=== PATIENT | female | born 1955 | race Caucasian/White ===

== ENCOUNTER 2016-12-07 16:52 | Emergency (ER) | payer BC ==
--- NOTE | 2016-12-07 17:15 | EDM.PDOC ---
ED HPI GENERAL MEDICAL PROBLEM - General Chief Complaint: ENT Problem Stated Complaint: PT HAS SINUS INFECTION Time Seen by Provider: 12/07/16 17:11 Source of Information: Reports: Patient History Limitations: Reports: No Limitations - History of Present Illness INITIAL COMMENTS - FREE TEXT/NARRATIVE: HISTORY AND PHYSICAL: []61-year-old female presenting with sinus pressure History of Present Illness: [] This awakens morning when her head is hurting bridge of her nose Review of Systems: As per history of present illness and below otherwise all systems reviewed and negative. Past medical history: As per history of present illness and as reviewed below otherwise noncontributory. Surgical history: As per history of present illness and as reviewed below otherwise noncontributory. Social history: No reported history of drug or alcohol abuse. Family history: As per history of present illness and as reviewed below otherwise noncontributory. Physical exam: Alert and oriented female able to speak in full sentences cooperative with examination speaking nasally HEENT: Atraumatic, normocehpalic, pupils reactive, negative for conjunctival pallor or scleral icterus, mucous membranes moist, throat clear, neck supple, nontender, trachea midline. Tender with palpation across the bridge of her nose poor light reflex Lungs: Clear to auscultation, breath sounds equal bilaterally, chest non tender. Heart: S1S2, regular, negative for clicks, rubs, or JVD. Abdomen: Soft, nondistended, nontender. Negative for masses or hepatossplenmegaly. Negative for costovertebral tenderness. Pelvis: Stable nontender. Genitourinary: Deferred. Rectal: Deferred Extremities: Atraumatic, negative for cords or calf pain. Neurovascular unremarkable. Neuro: Awake, alert, oriented. Cranial nerves II through XII unremarkable. Cerebellum unremarkable. Motor and sensory unremarkable throughout. Exam nonfocal. Diagnostics: [] Therapeutics: [] Impression: [Sinusitis] Plan: []Home antibiotics Definitive disposition and diagnosis as appropriate pending reevaluation and review of above. Onset: Today, Sudden Duration: Hour(s):, Getting Worse Location: Reports: Head, Face Quality: Reports: Ache - Related Data Allergies Allergy/AdvReac Type Severity Reaction Status Date / Time morphine Allergy Hives Verified 12/07/16 16:56 Home Meds: Home Meds Amoxicillin/Clavulanate K [Augmentin 875 MG/125 MG] 1 tab PO Q12HR #20 tablet [Rx] Escitalopram [Lexapro] 10 mg PO DAILY 12/07/16 [History] Past Medical History HEENT History: Reports: Impaired Vision Other HEENT History: wears reading glasses, has top denture and bottom partial Cardiovascular History: Reports: None Other Respiratory History: getting tested for sleep apnea next month Gastrointestinal History: Reports: Bowel Obstruction, GERD BRUSH HAND History: Reports: Other (See Below) Other OB/BYN History: hx of laparotomy for removal of ovary Musculoskeletal History: Reports: Fracture Psychiatric History: Reports: Depression Endocrine/Metabolic History: Reports: Obesity/BMI 30+ Hematologic History: Reports: Blood Transfusion(s) Immunologic History: Reports: None Oncologic (Cancer) History: Reports: None Dermatologic History: Reports: None - Past Surgical History Head Surgeries/Procedures: Reports: None HEENT Surgical History: Reports: None Cardiovascular Surgical History: Reports: None Respiratory Surgical History: Reports: None GI Surgical History: Reports: Appendectomy, Cholecystectomy Other GI Surgeries/Procedures: hx of Laparotomy for bowel obstruction x 3 Female Surgical History: Reports: None Endocrine Surgical History: Reports: None Neurological Surgical History: Reports: None Musculoskeletal Surgical History: Reports: ORIF Other Musculoskeletal Surgeries/Procedures:: right ankle Oncologic Surgical History: Reports: Lumpectomy Social & Family History - Tobacco Use Smoking Status *Q: Former Smoker Used Tobacco, but Quit: Yes - Recreational Drug Use Recreational Drug Use: No Drug Use in Last 12 Months: No ED ROS ENT - Review of Systems Review Of Systems: ROS reveals no pertinent complaints other than HPI. ED EXAM, ENT - Physical Exam Exam: See Below (see dictation) Departure - Departure Time of Disposition: 17:13 Disposition: Home, Self-Care 01 Condition: Good Clinical Impression: Sinusitis Qualifiers: Sinusitis location: ethmoidal Chronicity: acute Recurrence: not specified as recurrent Qualified Code(s): J01.20 - Acute ethmoidal sinusitis, unspecified - Discharge Information Prescriptions: Amoxicillin/Clavulanate K [Augmentin 875 MG/125 MG] 1 tab PO Q12HR #20 tablet Forms: ED Department Discharge
== END 2016-12-07 17:22 | disposition home or self-care (01) ==
LOC: MW.ED 16:52
CPT/HCPCS: 99282; 99283

== ENCOUNTER 2017-08-13 09:45 | Day surgery (SDC) | payer BC ==
[~2017-08-13 09:45] MED LIST: Acetaminophen/HYDROcodone 325-5 MG Tab PO PRN; Bupivacaine 0.25%/EPINEPHrine 1:200,000 10 ML SDV INJECT ONE; Bupivacaine 25%/EPINEPHrine/PF 30 ML ONE; Lactated Ringers 1,000 ML IV SCH; Lidocaine 2% 5 ML SDV ONE; Midazolam 1 MG/ML 2 ML SDV ONE; Propofol 200 MG/20 ML SDV ONE; ceFAZolin 2 GM in Premix Bag 1 BAG IV ONE; ceFAZolin/Dextrose,Iso-Osmotic 2 GM/50 ML Duplex Bag IV ONE; fentaNYL 100 MCG/2 ML SDV ONE
--- NOTE | 2017-08-13 10:41 | PCM.PREANE ---
Preanesthetic Assessment - Anesthesia/Transfusion/Family Hx Anesthesia History: Prior Anesthesia Without Reaction Other Type of Anesthesia Reaction Comment: hx of N&V in the past- not recently Family History of Anesthesia Reaction: No Transfusion History: No Prior Transfusion(s) Intubation History: Unknown - Review of Systems General: No Symptoms Pulmonary: No Symptoms Cardiovascular: No Symptoms Gastrointestinal: No Symptoms Neurological: No Symptoms Other: Reports: None - Physical Assessment Height: 1.6 m Weight: 125.192 kg ASA Class: 3 Mental Status: Alert & Oriented x3 Airway Class: Mallampati = 2 Dentition: Reports: Dentures (upper), Partial (lower) Thyro-Mental Finger Breadths: 3 Mouth Opening Finger Breadths: 2 ROM/Head Extension: Full Lungs: Clear to Auscultation, Normal Respiratory Effort Cardiovascular: Regular Rate, Regular Rhythm - Allergies Allergies/Adverse Reactions: Allergies Allergy/AdvReac Type Severity Reaction Status Date / Time morphine Allergy Hives Verified 08/10/17 12:48 - Blood Blood Available: No - Anesthesia Plan Pre-Op Medication Ordered: None - Acknowledgements Anesthesia Type Planned: MAC Pt an Appropriate Candidate for the Planned Anesthesia: Yes Alternatives and Risks of Anesthesia Discussed w Pt/Guardian: Yes Pt/Guardian Understands and Agrees with Anesthesia Plan: Yes PreAnesthesia Questionnaire HEENT History: Reports: Other (See Below) Other HEENT History: wears glasses, has upper denture and lower removable partial denture Cardiovascular History: Reports: None Other Respiratory History: getting tested for sleep apnea next month Gastrointestinal History: Reports: Bowel Obstruction, GERD Other Gastrointestinal History: SBO x3 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 (See Below) Other OB/BYN History: hx of laparotomy for removal of ovary Musculoskeletal History: Reports: Fracture Psychiatric History: Reports: Depression Endocrine/Metabolic History: Reports: Obesity/BMI 30+ (morbid obesity BMI 48.9) Hematologic History: Reports: B12 Deficiency Immunologic History: Reports: None Oncologic (Cancer) History: Reports: None Dermatologic History: Reports: None - Past Surgical History Head Surgeries/Procedures: Reports: None GI Surgical History: Reports: Appendectomy, Bariatric Procedure, Cholecystectomy Female Surgical History: Reports: Breast Biopsy, Oophorectomy Musculoskeletal Surgical History: Reports: ORIF Other Musculoskeletal Surgeries/Procedures:: hx of fx right ankle- has plate and screws - SUBSTANCE USE Smoking Status *Q: Former Smoker (quit 25 years ago) Tobacco Use Within Last Twelve Months: No Recreational Drug Use History: No - HOME MEDS Home Medications: Home Meds Escitalopram [Lexapro] 20 mg PO DAILY 12/07/16 [History] Cyanocobalamin (Vitamin B-12) [Vitamin B-12] 1,000 mcg IM ASDIRECTED 08/10/17 [ History] - CURRENT (IN HOUSE) MEDS Current Meds: Current Medications Hydrocodone Bitart/Acetaminophen (Salcha 325-5 Mg) 1 tab PO Q4H PRN PRN Reason: Pain Lactated Ringer's (Ringers, Lactated) 1,000 mls @ 125 mls/hr IV ASDIRECTED MAE Discontinued Medications Bupivacaine HCl/Epinephrine Bitart (Marcaine 0.25%/Epinephrine 1:200,000) 10 ml INJECT ONETIME ONE Stop: 08/13/17 08:01 Cefazolin Sodium/Dextrose (Ancef) Confirm Administered Dose 2 gm IV .STK-MED ONE Stop: 08/13/17 07:13 Fentanyl (Sublimaze) Confirm Administered Dose 100 mcg .ROUTE .STK-MED ONE Stop: 08/13/17 07:12 Cefazolin Sodium/Dextrose 2 gm (/ Premix) 50 mls @ 100 mls/hr IV ONETIME ONE Stop: 08/13/17 08:29 Bupivacaine HCl/Epinephrine Bitart (Sensorc Mpf 0.25%-Epi [id number]) Confirm Administered Dose 30 mls @ as directed .ROUTE .STK-MED ONE Stop: 08/13/17 07:28 Lidocaine (Xylocaine-Mpf 2%) Confirm Administered Dose 5 ml .ROUTE .STK-MED ONE Stop: 08/13/17 07:13 Midazolam HCl (Versed 1 Mg/Ml) Confirm Administered Dose 2 mg .ROUTE .STK-MED ONE Stop: 08/13/17 07:12 Propofol (Diprivan 20 Ml) Confirm Administered Dose 200 mg .ROUTE .STK-MED ONE Stop: 08/13/17 07:12
[2017-08-13] MEDS ORDERED: fentaNYL 100 MCG/2 ML SDV ONE (11:16)
[2017-08-13] MEDS ORDERED: Ketorolac 30 MG/ML SDV ONE (11:17)
[2017-08-13] MEDS ORDERED: Propofol 200 MG/20 ML SDV ONE (11:17)
--- NOTE | 2017-08-13 12:05 | PCM48HPAN ---
Post Anesthesia Note - EVALUATION WITHIN 48HRS OF ANESTHETIC Vital Signs in Normal Range: Yes Patient Participated in Evaluation: Yes Respiratory Function Stable: Yes Airway Patent: Yes Cardiovascular Function Stable: Yes Hydration Status Stable: Yes Pain Control Satisfactory: Yes Nausea and Vomiting Control Satisfactory: Yes Mental Status Recovered: Yes Resp Rate: 16 - COMMENTS/OBSERVATIONS Free Text/Narrative:: no anesthesia problems, patient skipped recovery room stage of postoperative care
--- NOTE | 2017-08-13 14:39 | PCM.OPNOTE ---
- General Post-Op/Procedure Note Date of Surgery/Procedure: 08/13/17 Operative Procedure(s): excision ganglions to right thumb and right ring finger Pre Op Diagnosis: ganglion cyst right thumb and right ring finger Post-Op Diagnosis: Same Anesthesia Technique: Local, MAC Primary Surgeon: Saadia Rivas Dip Dyer: Leonor Wagner Role of Dip Dyer: retraction, prepping, draping and closure assistance. Complications: None Condition: Good
[2017-08-13 15:01] VITALS: BP 144/58
--- NOTE | 2017-08-13 17:07 | OR ---
SURGEON: NAMRATA CODY MD DATE OF PROCEDURE: 08/13/2017 PREOPERATIVE DIAGNOSES: 1. Right thumb ganglion cyst. 2. Right ring finger ganglion cyst. POSTOPERATIVE DIAGNOSES: 1. Right thumb ganglion cyst. 2. Right ring finger ganglion cyst. PROCEDURES: 1. Excision of ganglion cyst of right thumb. 2. Excision of ganglion cyst, right ring finger. SYSTEMS ARCHITECTURE ANALYST: CORTES Sanchez. REASON FOR SYSTEMS ARCHITECTURE ANALYST: Retraction, prepping, draping, and closure assistance. ANESTHESIA: Local MAC. INDICATIONS: Ms. Taveras is a 61-year-old female with a ganglion cyst of the right thumb and the right ring finger. There are causing significant discomfort to her as well as abnormalities in nail growth on the ring finger. Risks and benefits of excision were discussed with her and she was in agreement to proceed. Risks were including, but not limited to, bleeding, infection, damage to underlying or overlying structures, possible need for future interventions, possible scarring. PROCEDURE IN DETAIL: After informed consent was obtained and placed on the chart. The patient was brought into the operating theater and laid in supine position. After adequate local MAC anesthesia was obtained, the area was prepped and draped and a time- out was completed to confirm side and site. The arm was exsanguinated and tourniquet was insufflated to 200 mmHg. Attention was then paid to excision of the ganglion of the right thumb with a longitudinal incision directly over radial aspect of the MCP joint where the ganglion was located. Dissection was carried down through the skin and subcutaneous tissues taking care to protect any cutaneous nerves. Once adequately exposed, the lesion was excised and was appreciated to communicate all the way down with the joint. Once adequately excised, the stalk and the communication was cauterized and closed using a 4-0 Monocryl stitch in a figure- of-eight fashion. Once adequately closed, the skin was then closed using 5-0 nylon stitch in a horizontal mattress fashion. Attention was then paid to the right ring finger and dissection was carried curvilinear around the DIP joint inside the ganglion cyst. Dissection was carried down directly onto the joint capsule taking care to spare the extensor tendon and collateral ligament. Once dissected down to the joint capsule here, the communication with the joint was located and a small amount of arthritic change was noted here. Small joint abnormalities were rongeured until smooth. Then the joint was copiously irrigated. Once adequately smooth, attention was then paid to closure of the capsule above this using a single 4-0 Monocryl stitch in a buried fashion. Once adequately closed, attention was then paid to hemostasis and closing the skin with a 5-0 nylon stitch in a horizontal mattress fashion. The patient tolerated this well. All counts and needles were correct at the end of the case. The wounds were dressed with Xeroform, fluffs, and a Kerlix gauze dressing and a 2-inch Lorne wrap and a Band-Aid for the finger. The patient tolerated this well. All counts and needles were correct at the end of the case. FOLLOWUP INSTRUCTIONS: The patient will see us in 10 to 14 days or sooner if any problems, questions, or concerns. She was given a prescription for pain control. FOUZIA BARR /[id number]
== END 2017-08-13 12:23 | disposition home or self-care (01) ==
LOC: MW.SDS 09:45
PROVIDERS: ATTEND Plastic Surgery
DX: M67.441 Ganglion, right hand (principal); M18.9 Osteoarthritis of first carpometacarpal joint, unspecified; F32.9 Major depressive disorder, single episode, unspecified; K21.9 Gastro-esophageal reflux disease without esophagitis; N60.29 Fibroadenosis of unspecified breast; E66.01 Morbid (severe) obesity due to excess calories; E53.8 Deficiency of other specified B group vitamins; Z88.5 Allergy status to narcotic agent; Z79.899 Other long term (current) drug therapy; Z87.891 Personal history of nicotine dependence; Z68.42 Body mass index [BMI] 45.0-49.9, adult
CPT/HCPCS: 26160; J0690; J1885; J2250; J3010; J7120; J2704

== ENCOUNTER 2017-10-11 22:13 | Emergency (ER) | payer BC ==
--- NOTE | 2017-10-11 23:25 | EDM.PDOC ---
ED HPI GENERAL MEDICAL PROBLEM - General Chief Complaint: ENT Problem Stated Complaint: COLD,SORE THROAT,EARACHE Time Seen by Provider: 10/11/17 23:22 Source of Information: Reports: Patient History Limitations: Reports: No Limitations - History of Present Illness INITIAL COMMENTS - FREE TEXT/NARRATIVE: HISTORY AND PHYSICAL: History of present illness: 61-year-old female presenting emergency department with chief complaint of nasal congestion and sore throat 2 days Patient states that 2 days ago she began to get some nasal congestion. She has had some associated sore throat which started approximately yesterday. She also is complaining of some right ear pain. She has had a productive cough with venous yellow sputum production. Denies any shortness of breath. She did feel a little bit warm with some mild chills but no overt fever. She denies any nausea , vomiting, abdominal pain, diarrhea, dysuria, or other signs of systemic infection. Currently denies any chest pain, palpitations, shortness of breath, syncopal episodes, focal neurologic deficits. Review of systems: As per history of present illness and below otherwise all systems reviewed and negative. Past medical history: As per history of present illness and as reviewed below otherwise noncontributory. Surgical history: As per history of present illness and as reviewed below otherwise noncontributory. Social history: No reported history of drug or alcohol abuse. Family history: As per history of present illness and as reviewed below otherwise noncontributory. Physical exam: HEENT: Bilateral tympanic membranes are bulging and no erythema. Right external canal is erythematous. Posterior pharynx is erythematous with mild exudate. Anterior cervical and submandibular lymph nodes are mildly enlarged and tender to palpation but mobile. Atraumatic, normocephalic, pupils reactive, negative for conjunctival pallor or scleral icterus, mucous membranes moist,, trachea midline. Lungs: Clear to auscultation, breath sounds equal bilaterally, chest nontender. Heart: S1S2, regular, negative for clicks, rubs, or JVD. Abdomen: Soft, nondistended, nontender. Negative for masses or hepatosplenomegaly. Negative for costovertebral tenderness. Pelvis: Stable nontender. Genitourinary: Deferred. Rectal: Deferred. Extremities: Atraumatic, negative for cords or calf pain. Neurovascular unremarkable. Neuro: Awake, alert, oriented. Cranial nerves II through XII unremarkable. Cerebellum unremarkable. Motor and sensory unremarkable throughout. Exam nonfocal. Diagnostics: Chest x-ray, rapid strep Therapeutics: Azithromycin Impression: Strep pharyngitis Plan: Chest x-ray as well as rapid strep were negative however secondary to symptoms more suspicious for strep pharyngitis with her anterior cervical as well as posterior cervical lymphadenopathy and posterior pharynx erythema with exudate. Will treat with azithromycin. This was explained to the patient. She was discharged in good condition with a prescription for azithromycin and instructed to return to emergency department if she had any new or worsening symptoms. She was also instructed to follow-up with her primary care physician. throat Pain Score (Numeric/FACES): 8 - Related Data Allergies Allergy/AdvReac Type Severity Reaction Status Date / Time morphine Allergy Hives Verified 10/11/17 23:05 Home Meds: Home Meds Escitalopram [Lexapro] 20 mg PO DAILY 12/07/16 [History] Past Medical History HEENT History: Reports: Other (See Below) Other HEENT History: wears glasses, has upper denture and lower removable partial denture Cardiovascular History: Reports: None Respiratory History: Reports: None Other Respiratory History: getting tested for sleep apnea next month Gastrointestinal History: Reports: Bowel Obstruction, GERD Other Gastrointestinal History: SBO x3 Genitourinary History: Reports: None 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 (See Below) Other OB/BYN History: hx of laparotomy for removal of ovary Musculoskeletal History: Reports: Fracture Neurological History: Reports: None Psychiatric History: Reports: Depression Endocrine/Metabolic History: Reports: Obesity/BMI 30+ Hematologic History: Reports: B12 Deficiency Immunologic History: Reports: None Oncologic (Cancer) History: Reports: None Dermatologic History: Reports: None - Infectious Disease History Infectious Disease History: Reports: None - Past Surgical History Head Surgeries/Procedures: Reports: None HEENT Surgical History: Reports: None Cardiovascular Surgical History: Reports: None Respiratory Surgical History: Reports: None GI Surgical History: Reports: Appendectomy, Bariatric Procedure, Cholecystectomy Other GI Surgeries/Procedures: hx of Laparotomy for bowel obstruction x 3 Female Surgical History: Reports: Breast Biopsy, Oophorectomy Endocrine Surgical History: Reports: None Neurological Surgical History: Reports: None Musculoskeletal Surgical History: Reports: ORIF Other Musculoskeletal Surgeries/Procedures:: hx of fx right ankle- has plate and screws Oncologic Surgical History: Reports: Lumpectomy Social & Family History - Family History Family Medical History: Noncontributory - Tobacco Use Smoking Status *Q: Never Smoker - Caffeine Use Caffeine Use: Reports: Coffee - Recreational Drug Use Recreational Drug Use: No ED ROS GENERAL - Review of Systems Review Of Systems: See Below ED EXAM, GENERAL - Physical Exam Exam: See Below Course - Vital Signs Last Recorded V/S: Last Vital Signs Temp 99.2 F 10/11/17 23:05 Pulse 99 10/11/17 23:05 Resp 18 10/11/17 23:05 BP 190/81 H 10/11/17 23:05 Pulse Ox 98 10/11/17 23:05 - Orders/Labs/Meds Orders: Active Orders 24 hr Category Date Time Status CXR [Chest 1V Frontal] [CR] Stat Exams 10/11/17 23:22 Taken CULTURE STREP A CONFIRMATION [RM] Stat Lab 10/11/17 23:27 Results STREP SCRN A RAPID W CULT CONF [RM] Stat Lab 10/11/17 23:27 Ordered Departure - Departure Time of Disposition: 00:22 Disposition: Home, Self-Care 01 Condition: Good Clinical Impression: Strep pharyngitis - Discharge Information Referrals: Erick Yung MD [Primary Care Provider] - Forms: ED Department Discharge Additional Instructions: My general discharge The following information is given to patients seen in the emergency department who are being discharged to home. This information is to outline your options for follow-up care. We provide all patients seen in our emergency department with a follow-up referral. The need for follow-up, as well as the timing and circumstances, are variable depending upon the specifics of your emergency department visit. If you don't have a primary care physician on staff, we will provide you with a referral. We always advise you to contact your personal physician following an emergency department visit to inform them of the circumstance of the visit and for follow-up with them and/or the need for any referrals to a consulting specialist. The emergency department will also refer you to a specialist when appropriate. This referral assures that you have the opportunity for follow-up care with a specialist. All of these measure are taken in an effort to provide you with optimal care, which includes your follow-up. Under all circumstances we always encourage you to contact your private physician who remains a resource for coordinating your care. When calling for follow-up care, please make the office aware that this follow-up is from your recent emergency room visit. If for any reason you are refused follow-up, please contact the [facility] Emergency Department at and asked to speak to the emergency department charge nurse. [facility] [address], [place] [address] [facility] [address] [place] [id number] - My Orders Last 24 Hours: My Active Orders 10/11/17 23:22 CXR [Chest 1V Frontal] [CR] Stat 10/11/17 23:27 CULTURE STREP A CONFIRMATION [RM] Stat STREP SCRN A RAPID W CULT CONF [RM] Stat - Assessment/Plan Last 24 Hours: My Active Orders 10/11/17 23:22 CXR [Chest 1V Frontal] [CR] Stat 10/11/17 23:27 CULTURE STREP A CONFIRMATION [RM] Stat STREP SCRN A RAPID W CULT CONF [RM] Stat
[2017-10-12 00:45] VITALS: BP 175/75
--- NOTE | 2017-10-12 16:41 | CR ---
EXAM DATE: 10/11/17 PATIENT'S AGE: 61 Patient: VLADIMIR OROSCO Facility: [place], [place] Site . Site : [id number] Study: XRay Chest [id number]/28/[id number] 11:41:58 PM Ordering Physician: Josafat Nova Final Report: Indication: Cough. SOB Technique: Chest 1 view Comparison: 06/16/2017. Findings/Impression: Cardiovascular and mediastinum: Stable cardiomediastinal silhouette. Lungs and pleural space: Lungs are clear. No sign of infiltrate or mass. No sign of pleural effusion. No pneumothorax. Bones and soft tissues: No significant findings. Dictated by Harsha Cisneros MD @ 10/12/2017 12:17:49 AM Dictated by: Harsha Cisneros MD @ 10/12/2017 00:17:53 (Electronic Signature) Report Signed by Proxy. [facility]ITAL[facility]
== END 2017-10-12 00:35 | disposition home or self-care (01) ==
LOC: MW.ED 22:13
DX: J02.0 Streptococcal pharyngitis (principal); Z88.5 Allergy status to narcotic agent; Z79.899 Other long term (current) drug therapy
CPT/HCPCS: 71045; 71045-26; 87081; 87880; 99283

== ENCOUNTER 2017-11-03 02:25 | Emergency (ER) | payer BC ==
[2017-11-03 03:20] VITALS: BP 188/88
--- NOTE | 2017-11-03 03:23 | EDM.PDOC ---
ED HPI GENERAL MEDICAL PROBLEM - General Chief Complaint: General Stated Complaint: SHINGLES Time Seen by Provider: 11/03/17 03:22 Source of Information: Reports: Patient History Limitations: Reports: No Limitations - History of Present Illness INITIAL COMMENTS - FREE TEXT/NARRATIVE: HISTORY AND PHYSICAL: History of present illness: 61-year-old female visiting emergency department with chief complaint of rash with pain to her right side 3 days. Patient states that on Wednesday approximately 3 days ago when have some right- sided pain. On the following day she noticed a vesicular rash being developed under her left breast. She's had increasing pain in vesicular development since. Symptoms are limited to her right side. She did not get the shingles vaccine. She did have chickenpox as a child. Patient is allergic to morphine but no other medical allergies. She currently denies any chest pain, palpitations, shortness of breath, syncopal episodes, focal neurologic deficits. Review of systems: As per history of present illness and below otherwise all systems reviewed and negative. Past medical history: As per history of present illness and as reviewed below otherwise noncontributory. Surgical history: As per history of present illness and as reviewed below otherwise noncontributory. Social history: No reported history of drug or alcohol abuse. Family history: As per history of present illness and as reviewed below otherwise noncontributory. Physical exam: HEENT: Atraumatic, normocephalic, pupils reactive, negative for conjunctival pallor or scleral icterus, mucous membranes moist, throat clear, neck supple, nontender, trachea midline. Lungs: Clear to auscultation, breath sounds equal bilaterally, chest nontender. Heart: S1S2, regular, negative for clicks, rubs, or JVD. Abdomen: Soft, nondistended, nontender. Negative for masses or hepatosplenomegaly. Negative for costovertebral tenderness. Pelvis: Stable nontender. Genitourinary: Deferred. Rectal: Deferred. Extremities: Atraumatic, negative for cords or calf pain. Neurovascular unremarkable. Neuro: Awake, alert, oriented. Cranial nerves II through XII unremarkable. Cerebellum unremarkable. Motor and sensory unremarkable throughout. Exam nonfocal. skin : There is a vesicular erythematous rash under the right breast as well as right back not crossing midline Diagnostics: [] Therapeutics: Valacyclovir 1000 mg by mouth 3 times a day 7 days, [place] 5 mg by mouth every 6 hours #12 Impression: Herpes zoster/shingles Plan: Vesicular rash consistent with shingles. Patient was prescribed valacyclovir 1000 mg by mouth 3 times a day 7 days as well as [place] 5 mg by mouth every 6 hours #12. She is instructed to follow-up with her primary care physician Dr. Yung as well as return to emergency department if she had any new or worsening symptoms. Abdominal Pain Score (Numeric/FACES): 7 - Related Data Allergies Allergy/AdvReac Type Severity Reaction Status Date / Time morphine Allergy Hives Verified 10/11/17 23:05 Home Meds: Home Meds Escitalopram [Lexapro] 20 mg PO DAILY 12/07/16 [History] Omeprazole Magnesium [Prilosec Otc] 20 mg PO DAILY 11/03/17 [History] Past Medical History HEENT History: Reports: Other (See Below) Other HEENT History: wears glasses, has upper denture and lower removable partial denture Cardiovascular History: Reports: None Respiratory History: Reports: None Other Respiratory History: getting tested for sleep apnea next month Gastrointestinal History: Reports: Bowel Obstruction, GERD Other Gastrointestinal History: SBO x3 Genitourinary History: Reports: None 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 (See Below) Other OB/BYN History: hx of laparotomy for removal of ovary Musculoskeletal History: Reports: Fracture Neurological History: Reports: None Psychiatric History: Reports: Depression Endocrine/Metabolic History: Reports: Obesity/BMI 30+ Hematologic History: Reports: B12 Deficiency Immunologic History: Reports: None Oncologic (Cancer) History: Reports: None Dermatologic History: Reports: None - Infectious Disease History Infectious Disease History: Reports: None - Past Surgical History Head Surgeries/Procedures: Reports: None HEENT Surgical History: Reports: None Cardiovascular Surgical History: Reports: None Respiratory Surgical History: Reports: None GI Surgical History: Reports: Appendectomy, Bariatric Procedure, Cholecystectomy Other GI Surgeries/Procedures: hx of Laparotomy for bowel obstruction x 3 Female Surgical History: Reports: Breast Biopsy, Oophorectomy Endocrine Surgical History: Reports: None Neurological Surgical History: Reports: None Musculoskeletal Surgical History: Reports: ORIF Other Musculoskeletal Surgeries/Procedures:: hx of fx right ankle- has plate and screws Oncologic Surgical History: Reports: Lumpectomy Social & Family History - Family History Family Medical History: Noncontributory - Tobacco Use Smoking Status *Q: Never Smoker - Caffeine Use Caffeine Use: Reports: Coffee ED ROS GENERAL - Review of Systems Review Of Systems: ROS reveals no pertinent complaints other than HPI. ED EXAM, GENERAL - Physical Exam Exam: See Below Course - Vital Signs Last Recorded V/S: Last Vital Signs Temp 98.6 F 11/03/17 03:19 Pulse 71 11/03/17 03:19 Resp 18 11/03/17 03:19 BP 188/88 H 11/03/17 03:19 Pulse Ox 98 11/03/17 03:19 Departure - Departure Time of Disposition: 03:39 Disposition: Home, Self-Care 01 Condition: Good Clinical Impression: Shingles outbreak Qualifiers: Herpes zoster complications: without complications Qualified Code(s): B02.9 - Zoster without complications - Discharge Information Referrals: Erick Yung MD [Primary Care Provider] - Forms: ED Department Discharge Additional Instructions: My general discharge The following information is given to patients seen in the emergency department who are being discharged to home. This information is to outline your options for follow-up care. We provide all patients seen in our emergency department with a follow-up referral. The need for follow-up, as well as the timing and circumstances, are variable depending upon the specifics of your emergency department visit. If you don't have a primary care physician on staff, we will provide you with a referral. We always advise you to contact your personal physician following an emergency department visit to inform them of the circumstance of the visit and for follow-up with them and/or the need for any referrals to a consulting specialist. The emergency department will also refer you to a specialist when appropriate. This referral assures that you have the opportunity for follow-up care with a specialist. All of these measure are taken in an effort to provide you with optimal care, which includes your follow-up. Under all circumstances we always encourage you to contact your private physician who remains a resource for coordinating your care. When calling for follow-up care, please make the office aware that this follow-up is from your recent emergency room visit. If for any reason you are refused follow-up, please contact the [facility] Emergency Department at and asked to speak to the emergency department charge nurse. [address] [place] [address] Take medications as prescribed. Follow-up with primary care physician. Return emergency department if any new or worsening symptoms.
[2017-11-03] MEDS ORDERED: Ketorolac 60 MG/2 ML SDV IM ONE (03:40)
== END 2017-11-03 04:13 | disposition home or self-care (01) ==
LOC: MW.ED 02:25
DX: B02.9 Zoster without complications (principal); K21.9 Gastro-esophageal reflux disease without esophagitis; Z79.899 Other long term (current) drug therapy; Z88.5 Allergy status to narcotic agent
CPT/HCPCS: 96372; 99282; J1885; 99283

== ENCOUNTER 2018-06-12 12:21 | Emergency (ER) | payer BC ==
--- NOTE | 2018-06-12 12:28 | EDM.PDOC ---
ED HPI GENERAL MEDICAL PROBLEM - General Chief Complaint: Upper Extremity Injury/Pain Stated Complaint: INJURY TO LT WRIST Time Seen by Provider: 06/12/18 12:25 - History of Present Illness INITIAL COMMENTS - FREE TEXT/NARRATIVE: HISTORY AND PHYSICAL: History of present illness: Patient's a 62-year-old white female who presents with a concern status post fall with left wrist injury she denies other trauma or concern she denies anticoagulants denies head or neck pain or trauma denies chest pain shortness breath or dizziness that she simply slipped on the ice Review of systems: As per history of present illness and below otherwise all systems reviewed and negative. Past medical history: As per history of present illness and as reviewed below otherwise noncontributory. Surgical history: As per history of present illness and as reviewed below otherwise noncontributory. Social history: No reported history of drug or alcohol abuse. Family history: As per history of present illness and as reviewed below otherwise noncontributory. Physical exam: HEENT: Atraumatic, normocephalic, pupils reactive, negative for conjunctival pallor or scleral icterus, mucous membranes moist, throat clear, neck supple, nontender, trachea midline. Lungs: Clear to auscultation, breath sounds equal bilaterally, chest nontender. Heart: S1S2, regular, negative for clicks, rubs, or JVD. Abdomen: Soft, nondistended, nontender. Negative for masses or hepatosplenomegaly. Negative for costovertebral tenderness. Pelvis: Stable nontender. Genitourinary: Deferred. Rectal: Deferred. Extremities: Patient has pain and swelling over the dorsal aspect of her left wrist is no gross deformity CMS neurovascular exams unremarkable Neuro: Awake, alert, oriented. Cranial nerves II through XII unremarkable. Cerebellum unremarkable. Motor and sensory unremarkable throughout. Exam nonfocal. Diagnostics: X-ray left wrist Therapeutics: Thumb spica splint Impression: #1 acute left wrist injury Definitive disposition and diagnosis as appropriate pending reevaluation and review of above. Left Wrist Pain Score (Numeric/FACES): 6 - Related Data Allergies Allergy/AdvReac Type Severity Reaction Status Date / Time morphine Allergy Hives Verified 06/12/18 12:29 Home Meds: Home Meds Escitalopram [Lexapro] 20 mg PO DAILY 12/07/16 [History] Omeprazole Magnesium [Prilosec Otc] 20 mg PO DAILY 11/03/17 [History] Past Medical History HEENT History: Reports: Other (See Below) Other HEENT History: wears glasses, has upper denture and lower removable partial denture Cardiovascular History: Reports: None Respiratory History: Reports: None Other Respiratory History: getting tested for sleep apnea next month Gastrointestinal History: Reports: Bowel Obstruction, GERD Other Gastrointestinal History: SBO x3 Genitourinary History: Reports: None 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) Other TABLE OPERATOR History: hx of laparotomy for removal of ovary Musculoskeletal History: Reports: Fracture Neurological History: Reports: None Psychiatric History: Reports: Depression Endocrine/Metabolic History: Reports: Obesity/BMI 30+ Hematologic History: Reports: B12 Deficiency Immunologic History: Reports: None Oncologic (Cancer) History: Reports: None Dermatologic History: Reports: None - Infectious Disease History Infectious Disease History: Reports: Chicken Pox, Shingles - Past Surgical History Head Surgeries/Procedures: Reports: None HEENT Surgical History: Reports: None Cardiovascular Surgical History: Reports: None Respiratory Surgical History: Reports: None GI Surgical History: Reports: Appendectomy, Bariatric Procedure, Cholecystectomy Other GI Surgeries/Procedures: hx of Laparotomy for bowel obstruction x 3 Female Surgical History: Reports: Breast Biopsy, Oophorectomy Endocrine Surgical History: Reports: None Neurological Surgical History: Reports: None Musculoskeletal Surgical History: Reports: ORIF Other Musculoskeletal Surgeries/Procedures:: hx of fx right ankle- has plate and screws Oncologic Surgical History: Reports: Lumpectomy Social & Family History - Family History Family Medical History: Noncontributory - Caffeine Use Caffeine Use: Reports: Coffee Review of Systems - Review of Systems Review Of Systems: ROS reveals no pertinent complaints other than HPI. ED EXAM, GENERAL - Physical Exam Exam: See Below (See dictation) Course - Vital Signs Text/Narrative:: Patient emerged from a course been unremarkable x-ray demonstrates comminuted distal radius fracture with approximately 45 angulation dorsally patient was put in a thumb spica splint I discussed case with orthopedic surgery Dr. Suarez at [facility] who requests transfer their patient will be transferred I discussed case with the ER physician who graciously accepted patient she'll be transferred accordingly. Impression is #1 comminuted distal radius fracture with dorsal angulation Last Recorded V/S: Last Vital Signs Temp 36.0 C 06/12/18 12:30 Pulse 80 06/12/18 12:30 Resp 16 06/12/18 12:30 BP 163/77 H 06/12/18 12:30 Pulse Ox 96 06/12/18 12:30 - Orders/Labs/Meds Orders: Active Orders 24 hr Category Date Time Status Wrist 2V Lt [CR] Stat Exams 06/12/18 12:26 Taken Departure - Departure Time of Disposition: 13:11 Disposition: DC/Tfer to Acute Hospital 02 Condition: Good Clinical Impression: Radius fracture - Discharge Information Referrals: PCP,Unknown [Primary Care Provider] - Forms: ED Department Discharge - My Orders Last 24 Hours: My Active Orders 06/12/18 12:26 Wrist 2V Lt [CR] Stat - Assessment/Plan Last 24 Hours: My Active Orders 06/12/18 12:26 Wrist 2V Lt [CR] Stat
[2018-06-12 12:32] VITALS: BP 163/77
--- NOTE | 2018-06-12 13:14 | CR ---
INDICATION: Fell. TECHNIQUE: Two views left wrist. FINDINGS: Moderately displaced, moderately angulated acute impacted comminuted intra-articular fracture distal left radius. Moderate dorsal angulation of the distal left radius distal to the fracture with few free fracture fragments in the surrounding tissues. The impaction of the radial fracture results in ulnar positive variance. [id number] degenerative arthritis left wrist greatest radially. Moderate soft tissue swelling and deformity distal left forearm and wrist. Remainder negative. Dictated by Joshua Soto MD @ Jun 12 2018 1:11PM Signed by Dr. Joshua Soto @ Jun 12 2018 1:13PM
== END 2018-06-12 13:25 ==
LOC: MW.ED 12:21
DX: S52.572A Other intraarticular fracture of lower end of left radius, initial encounter for closed fracture (principal); F32.9 Major depressive disorder, single episode, unspecified; E66.9 Obesity, unspecified; Z88.5 Allergy status to narcotic agent; Z79.899 Other long term (current) drug therapy; Z90.49 Acquired absence of other specified parts of digestive tract; Z98.84 Bariatric surgery status; W19.XXXA Unspecified fall, initial encounter
CPT/HCPCS: 73100-26-LT; 73100-LT; 99283

== ENCOUNTER 2018-07-10 03:42 | Emergency (ER) | payer BC ==
[2018-07-10] MEDS ORDERED: Ondansetron 4 MG/2 ML SDV IVPUSH ONE (04:01)
[2018-07-10] MEDS ORDERED: Sodium Chloride 0.9% 1,000 ML IV ONE (04:01)
[2018-07-10] MEDS ORDERED: Ketorolac 30 MG/ML SDV IVPUSH ONE (04:01)
--- NOTE | 2018-07-10 04:05 | EDM.PDOC ---
ED HPI GENERAL MEDICAL PROBLEM - General Chief Complaint: Back Pain or Injury Stated Complaint: PAIN IN LOWER BACK Time Seen by Provider: 07/10/18 04:00 - History of Present Illness INITIAL COMMENTS - FREE TEXT/NARRATIVE: HISTORY AND PHYSICAL: History of present illness: Patient 62-year-old white female presents with a concern of low back pain and states she's had some hesitancy with urination no fever chills nausea vomiting shaped skin on somewhat acutely she denies fever chills denies trauma denies history urolithiasis Review of systems: As per history of present illness and below otherwise all systems reviewed and negative. Past medical history: As per history of present illness and as reviewed below otherwise noncontributory. Surgical history: As per history of present illness and as reviewed below otherwise noncontributory. Social history: No reported history of drug or alcohol abuse. Family history: As per history of present illness and as reviewed below otherwise noncontributory. Physical exam: HEENT: Atraumatic, normocephalic, pupils reactive, negative for conjunctival pallor or scleral icterus, mucous membranes moist, throat clear, neck supple, nontender, trachea midline. Lungs: Clear to auscultation, breath sounds equal bilaterally, chest nontender. Heart: S1S2, regular, negative for clicks, rubs, or JVD. Abdomen: Soft, nondistended, nontender. Negative for masses or hepatosplenomegaly. Equivocal costovertebral tenderness. Pelvis: Stable nontender. Genitourinary: Deferred. Rectal: Deferred. Extremities: Atraumatic, negative for cords or calf pain. Neurovascular unremarkable. Neuro: Awake, alert, oriented. Cranial nerves II through XII unremarkable. Cerebellum unremarkable. Motor and sensory unremarkable throughout. Exam nonfocal. Diagnostics: CBC CMP UA CT abdomen and pelvis Therapeutics: Saline 1 L bolus Toradol 30 mg IV Zofran 4 mg IV Impression: #1 flank pain Definitive disposition and diagnosis as appropriate pending reevaluation and review of above. low back Pain Score (Numeric/FACES): 7 - Related Data Allergies Allergy/AdvReac Type Severity Reaction Status Date / Time morphine Allergy Hives Verified 07/10/18 03:56 Home Meds: Home Meds Escitalopram [Lexapro] 20 mg PO DAILY 12/07/16 [History] Omeprazole Magnesium [Prilosec Otc] 20 mg PO DAILY 11/03/17 [History] Past Medical History HEENT History: Reports: Other (See Below) Other HEENT History: wears glasses, has upper denture and lower removable partial denture Cardiovascular History: Reports: None Respiratory History: Reports: None Other Respiratory History: getting tested for sleep apnea next month Gastrointestinal History: Reports: Bowel Obstruction, GERD Other Gastrointestinal History: SBO x3 Genitourinary History: Reports: None 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 (See Below) Other MANAGER WIRELESS History: hx of laparotomy for removal of ovary Musculoskeletal History: Reports: Fracture Neurological History: Reports: None Psychiatric History: Reports: Depression Endocrine/Metabolic History: Reports: Obesity/BMI 30+ Hematologic History: Reports: B12 Deficiency Immunologic History: Reports: None Oncologic (Cancer) History: Reports: None Dermatologic History: Reports: None - Infectious Disease History Infectious Disease History: Reports: Chicken Pox, Shingles - Past Surgical History Head Surgeries/Procedures: Reports: None HEENT Surgical History: Reports: None Cardiovascular Surgical History: Reports: None Respiratory Surgical History: Reports: None GI Surgical History: Reports: Appendectomy, Bariatric Procedure, Cholecystectomy Other GI Surgeries/Procedures: hx of Laparotomy for bowel obstruction x 3 Female Surgical History: Reports: Breast Biopsy, Oophorectomy Endocrine Surgical History: Reports: None Neurological Surgical History: Reports: None Musculoskeletal Surgical History: Reports: ORIF Other Musculoskeletal Surgeries/Procedures:: hx of fx right ankle- has plate and screws Oncologic Surgical History: Reports: Lumpectomy Social & Family History - Family History Family Medical History: Noncontributory - Tobacco Use Smoking Status *Q: Never Smoker - Caffeine Use Caffeine Use: Reports: Coffee - Recreational Drug Use Recreational Drug Use: No ED ROS GENERAL - Review of Systems Review Of Systems: ROS reveals no pertinent complaints other than HPI. ED EXAM, GENERAL - Physical Exam Exam: See Below (See dictation) Course - Vital Signs Text/Narrative:: Patient's emergency department course is unremarkable she has improvement CT of her abdomen and pelvis was unremarkable for any acute processes routine labs including CBC condition UA were negative I discussed with patient the unclear etiology of this as it may indeed represent undifferentiated lower back pain muscle skeletal issues can cause such a thing she has had a history of shingles in the past I did also discuss with sometimes herpetic pain can precede a rash but this does not seem to be in a distribution consistent with that she was immunized for shingles. She'll follow-up with her doctor and return as needed as discussed Last Recorded V/S: Last Vital Signs Temp 36.2 C 07/10/18 03:45 Pulse 78 07/10/18 05:30 Resp 18 07/10/18 05:30 BP 157/70 H 07/10/18 05:30 Pulse Ox 97 07/10/18 05:30 - Orders/Labs/Meds Labs: Laboratory Tests 07/10/18 07/10/18 07/10/18 Range/Units 04:00 04:15 04:15 WBC 7.43 (4.0-11.0) K/uL RBC 4.38 (4.30-5.90) M/uL Hgb 11.9 L (12.0-16.0) g/dL Hct 36.8 (36.0-46.0) % MCV 84.0 (80.0-98.0) fL MCH 27.2 (27.0-32.0) pg MCHC 32.3 (31.0-37.0) g/dL RDW Std Deviation 45.4 (28.0-62.0) fl RDW Coeff of [place] 15 (11.0-15.0) % Plt Count 268 (150-400) K/uL MPV 10.50 (7.40-12.00) fL Neut % (Auto) 75.3 (48.0-80.0) % Lymph % (Auto) 17.5 (16.0-40.0) % Frio % (Auto) 6.1 (0.0-15.0) % Eos % (Auto) 0.7 (0.0-7.0) % Baso % (Auto) 0.4 (0.0-1.5) % Neut # (Auto) 5.6 (1.4-5.7) K/uL Lymph # (Auto) 1.3 (0.6-2.4) K/uL Frio # (Auto) 0.5 (0.0-0.8) K/uL Eos # (Auto) 0.1 (0.0-0.7) K/uL Baso # (Auto) 0.0 (0.0-0.1) K/uL Nucleated RBC % 0.3 /100WBC Nucleated RBCs # 0 K/uL Sodium 136 (136-145) mmol/L Potassium 3.8 (3.5-5.1) mmol/L Chloride 102 (98-107) mmol/L Carbon Dioxide 25.2 (21.0-32.0) mmol/L BUN 14 (7.0-18.0) mg/dL Creatinine 0.7 (0.6-1.0) mg/dL Est Cr Clr Drug Dosing 68.05 mL/min Estimated GFR (MDRD) > 60.0 ml/min Glucose 117 H (74-106) mg/dL Calcium 9.4 (8.5-10.1) mg/dL Total Bilirubin 0.4 (0.2-1.0) mg/dL AST 18 (15-37) IU/L ALT 19 (14-63) IU/L Alkaline Phosphatase 164 H (46-116) U/L Total Protein 7.2 (6.4-8.2) g/dL Albumin 3.6 (3.4-5.0) g/dL Globulin 3.6 (2.6-4.0) g/dL Albumin/Globulin Ratio 1.0 (0.9-1.6) Urine Color YELLOW Urine Appearance HAZY Urine pH 7.0 (5.0-8.0) Ur Specific [place] 1.015 (1.001-1.035) Urine Protein NEGATIVE (NEGATIVE) mg/dL Urine Glucose (UA) NEGATIVE (NEGATIVE) mg/dL Urine Ketones NEGATIVE (NEGATIVE) mg/dL Urine Occult Blood NEGATIVE (NEGATIVE) Urine Nitrite NEGATIVE (NEGATIVE) Urine Bilirubin NEGATIVE (NEGATIVE) Urine Urobilinogen 0.2 (<2.0) EU/dL Ur Leukocyte Esterase TRACE H (NEGATIVE) Urine RBC 0-2 (0-2/HPF) Urine WBC 1-3 (0-5/HPF) Ur Epithelial Cells FEW (NONE-FEW) Urine Bacteria FEW (NEGATIVE) Meds: Medications Discontinued Medications Generic Name Dose Route Start Last Admin Trade Name Freq PRN Reason Stop Dose Admin Sodium Chloride 1,000 mls @ 999 mls/hr 07/10/18 04:01 07/10/18 04:20 Normal Saline IV 07/10/18 05:01 999 mls/hr STAT ONE Administration Ketorolac Tromethamine 30 mg 07/10/18 04:01 07/10/18 04:20 Toradol IVPUSH 07/10/18 04:02 30 mg ONETIME ONE Administration Ondansetron HCl 4 mg 07/10/18 04:01 07/10/18 04:20 Zofran IVPUSH 07/10/18 04:02 4 mg ONETIME ONE Administration Departure - Departure Time of Disposition: 06:56 Disposition: Home, Self-Care 01 Condition: Good Clinical Impression: Back pain - Discharge Information Referrals: Erick Yung MD [Primary Care Provider] - Forms: ED Department Discharge Additional Instructions: The following information is given to patients seen in the emergency department who are being discharged to home. This information is to outline your options for follow-up care. We provide all patients seen in our emergency department with a follow-up referral. The need for follow-up, as well as the timing and circumstances, are variable depending upon the specifics of your emergency department visit. If you don't have a primary care physician on staff, we will provide you with a referral. We always advise you to contact your personal physician following an emergency department visit to inform them of the circumstance of the visit and for follow-up with them and/or the need for any referrals to a consulting specialist. The emergency department will also refer you to a specialist when appropriate. This referral assures that you have the opportunity for followup care with a specialist. All of these measure are taken in an effort to provide you with optimal care, which includes your followup. Under all circumstances we always encourage you to contact your private physician who remains a resource for coordinating your care. When calling for followup care, please make the office aware that this follow-up is from your recent emergency room visit. If for any reason you are refused follow-up, please contact the [facility] emergency department at and asked to speak to the emergency department charge nurse. Continue current medication follow primary medical doctor return as needed as discussed
[2018-07-10 04:41] LABS: CHLORIDE,CL 102 mmol/L (98-107); SODIUM,NA 136 mmol/L (136-145)
--- NOTE | 2018-07-10 04:46 | CT ---
INDICATION: Right-sided abdominal pain TECHNIQUE: CT abdomen and pelvis without contrast. COMPARISON: None FINDINGS: Lower chest: Unremarkable. Liver: Unremarkable. Spleen: Unremarkable. Pancreas: Unremarkable. Gallbladder and bile ducts: S/p cholecystectomy. Adrenal glands: Unremarkable. Kidneys: Unremarkable. No kidney or ureteral stones and no hydronephrosis. GI tract: Status post gastric bypass procedure. Appendix is not visualized. No inflammatory changes seen in the pericecal region. Vascular structures: Unremarkable. Lymph nodes: Unremarkable. Miscellaneous: Unremarkable. No free air or significant free fluid. Pelvic Organs: Unremarkable. Bones: Unremarkable for age. IMPRESSION: No acute intra-abdominal process identified. Status post cholecystectomy and gastric bypass procedure. Please note that all CT scans at this facility use dose modulation, iterative reconstruction, and/or weight-based dosing when appropriate to reduce radiation dose to as low as reasonably achievable. Dictated by Leonor Patel MD @ Jul 10 2018 4:40AM Signed by Dr. Leonor Patel @ Jul 10 2018 4:45AM
[2018-07-10 07:14] VITALS: BP 140/70
== END 2018-07-10 07:10 | disposition home or self-care (01) ==
LOC: MW.ED 03:42
DX: M54.5 Low back pain (principal); R10.9 Unspecified abdominal pain; F32.9 Major depressive disorder, single episode, unspecified; K52.9 Noninfective gastroenteritis and colitis, unspecified; Z79.899 Other long term (current) drug therapy; Z88.5 Allergy status to narcotic agent
CPT/HCPCS: 36415; 74176; 80053; 81001; 85025; 96361; 96374; 96375; 99284; J1885; J2405; J7040

== ENCOUNTER 2022-04-05 11:24 | Emergency (ER) | payer MEDICARE, OTHER ==
[2022-04-05 11:44] VITALS: BP 160/61; PULSE 85
== END 2022-04-05 12:12 | disposition home or self-care (01) ==
LOC: MW.ED 11:24
DX: U07.1 COVID-19 (principal); E66.9 Obesity, unspecified; Z68.41 Body mass index [BMI] 40.0-44.9, adult; Z88.6 Allergy status to analgesic agent; Z79.899 Other long term (current) drug therapy; Z90.49 Acquired absence of other specified parts of digestive tract
CPT/HCPCS: 99283